=== PATIENT | female | born 1975 | race Hispanic/Latino ===

== ENCOUNTER 2020-07-22 11:19 | Observation (INO) | payer BC ==
[~2020-07-22] VITALS: Ht 154.9 cm; Wt 81.6 kg
[2020-07-22 11:57] VITALS: BP 147/84
[2020-07-22 12:10] LABS: HEMATOCRIT 24.3 % (36-48)
[2020-07-22] MEDS ORDERED: METF-446 PO (12:27)
[2020-07-22 16:20] VITALS: BP 112/78
[2020-07-22 19:23] VITALS: BP 122/80
[2020-07-22 20:06] LABS: HEMATOCRIT 30.7 % (36-48)
[2020-07-22 20:08] VITALS: BP 133/75
== END 2020-07-22 20:55 | disposition home or self-care (01) ==
LOC: WSH 11:19
PROVIDERS: ADMIT Obstetrics & Gynecology; ATTEND Obstetrics & Gynecology
DX: D64.9 Anemia, unspecified (principal); N92.0 Excessive and frequent menstruation with regular cycle
CPT/HCPCS: 36415; 36430; 85014 ×2; 85018 ×2; 86850; 86900; 86901; 86923; G0378 ×4; G0379; J7030; P9016 ×2